=== PATIENT | male | born 1945 | race Asian ===

== ENCOUNTER 2020-05-04 06:01 | Inpatient (IN) | payer OTHER ==
[~2020-05-04] VITALS: Ht 172.7 cm; Wt 70.0 kg
[2020-05-04 07:17] LABS: Basophils # (auto) 0 10 ^3/uL (0-0.2); Basophils % (auto) 0.3 % (0.0-2.0); Eosinophils # (auto) 0 10 ^3/uL (0-0.8); Hematocrit 46.4 % (41.0-53.0); Hemoglobin 16.2 g/dL (13.5-17.5); Lymphocytes # (auto) 0.7 10 ^3/uL (0.4-5.4); Lymphocytes % (auto) 6.6 % (10.0-50.0); Mean Corpuscular Hemoglobin 32.6 pg (28.0-32.0); Mean Corpuscular Hgb Conc. 34.8 g/dL (32.0-36.0); Mean Corpuscular Volume 93.6 fL (80.0-100.0); Monocytes # (auto) 0.6 10 ^3/uL (0-1.3); Monocytes % (auto) 6.1 % (0.0-12.0); Neutrophils # (auto) 8.9 10 ^3/uL (1.6-8.6); Nucleated Red Blood Cells % 0.1 %; Platelet Count (auto) 281 10^3/uL (140-450); Red Blood Cells 4.96 10^6/uL (4.5-5.90); Red Cell Distribution Width 13.1 % (11.8-14.3); White Blood Cell 10.2 10^3/uL (4.4-10.8)
[2020-05-04 07:41] LABS: Albumin 4.6 g/dL (3.4-5.0); BUN/Creatinine Ratio 20.7; Bilirubin, Total 0.6 mg/dL (0.2-1.0); Calcium 9.4 mg/dL (8.5-10.1); Total Protein 8.7 g/dL (6.4-8.2)
[2020-05-04] MEDS ORDERED: METOCLOPRAMIDE HCL 5MG/ml INJ 2ml VIAL IV ONE (08:15)
[2020-05-04] MEDS ORDERED: MORPHINE SULF INJ 2 MG/ML SYRINGE 1ML IV ONE (08:15)
[2020-05-04] MEDS ORDERED: SODIUM CHLORIDE 0.9% 500 ML IVB ONE (08:30)
[2020-05-04] MEDS ORDERED: SODIUM CHLORIDE 0.9% 1,000 ML IV ONE (08:30)
[2020-05-04 09:11] LABS: Partial Thromboplastin Time 24.9 sec (23.0-31.2)
[2020-05-04] MEDS ORDERED: D5W/SOD CHL 0.45%/KCL 40MEQ 1,000 ML IV ONE (10:30)
[2020-05-04] MEDS ORDERED: ONDANSETRON HCL 4 MG/2 ML VIAL IV PRN (11:30)
[2020-05-04] MEDS ORDERED: MORPHINE SULF INJ 2 MG/ML SYRINGE 1ML IV PRN ×2 (11:30)
[2020-05-04] MEDS ORDERED: NITROGLYCERIN 0.4 MG SL TAB SL PRN (11:30)
[2020-05-04 12:05] LABS: Cholesterol 253 mg/dL (< 200)
[2020-05-04 12:08] LABS: HDL Cholesterol 84 mg/dL (40-59); LDL Cholesterol 148 mg/dL (< 100); Triglycerides 109 mg/dL (< 150)
[2020-05-04] MEDS: PANTOPRAZOLE 40 MG/10 ML VIAL INJ IV SCH ×2 (14:38→23:00)
[2020-05-04 16:47] VITALS: BP 134/74
[2020-05-04] MEDS: D5W/SOD CHL 0.45% 1,000 ML IV SCH (19:30)
[2020-05-04 22:00] VITALS: BP 118/78
[2020-05-04 23:43] LABS: Urine Bacteria NONE SEEN /hpf (None Seen); Urine Blood Negative /uL (Negative); Urine Hyaline Cast MOD /lpf (0 - 2); Urine Specific Gravity 1.017 (1.001-1.035); Urine WBC 1 /hpf (0 - 3)
[2020-05-04 23:55] LABS: Protein, Urine 27.8 mg/dL (0.0-11.9)
[2020-05-05] MEDS: D5W/SOD CHL 0.45% 1,000 ML IV SCH ×4 (00:31→20:57)
[2020-05-05 05:00] VITALS: BP 141/75
[2020-05-05 07:54] LABS: Phosphorus 4.1 mg/dL (2.5-4.90)
[2020-05-05 08:33] VITALS: BP 127/75
[2020-05-05] MEDS ORDERED: SODIUM CHLORIDE LOCK 10 ML ONE (09:55)
[2020-05-05] MEDS ORDERED: LIDOCAINE VISCOUS 2% 15ML UD ONE (09:56)
[2020-05-05] MEDS ORDERED: fentaNYL CITRATE 100 MCG/2 ML VL ONE (09:56)
[2020-05-05] MEDS ORDERED: diphenhdrAMINE HCL 50 MG/1 ML VL ONE (09:56)
[2020-05-05] MEDS ORDERED: MIDAZOLAM HCL 5 MG/ML-1ML VIAL ONE (09:56)
[2020-05-05] MEDS: PANTOPRAZOLE 40 MG/10 ML VIAL INJ IV SCH ×2 (10:04→20:57)
[2020-05-05 10:26] LABS: Basophils # (auto) 0 10 ^3/uL (0-0.2); Basophils % (auto) 0.2 % (0.0-2.0); Eosinophils # (auto) 0 10 ^3/uL (0-0.8); Hematocrit 44.1 % (41.0-53.0); Hemoglobin 14.9 g/dL (13.5-17.5); Lymphocytes % (auto) 9.4 % (10.0-50.0); Mean Corpuscular Hemoglobin 32.4 pg (28.0-32.0); Mean Corpuscular Hgb Conc. 33.9 g/dL (32.0-36.0); Mean Corpuscular Volume 95.6 fL (80.0-100.0); Monocytes % (auto) 9.3 % (0.0-12.0); Neutrophils # (auto) 9.1 10 ^3/uL (1.6-8.6); Neutrophils % (auto) 81.1 % (37.0-80.0); Nucleated Red Blood Cells % 0.1 %; Platelet Count (auto) 235 10^3/uL (140-450); Red Blood Cells 4.62 10^6/uL (4.5-5.90); Red Cell Distribution Width 13.3 % (11.8-14.3); White Blood Cell 11.2 10^3/uL (4.4-10.8)
[2020-05-05 12:46] LABS: BUN/Creatinine Ratio 22.6; Calcium 8.3 mg/dL (8.5-10.1)
[2020-05-05 14:49] LABS: Uric Acid 15.2 mg/dL (3.5-7.2)
[2020-05-05] MEDS ORDERED: POTASSIUM CHL 20MEQ/100ML 100 ML IV ONE (16:00)
[2020-05-05] MEDS ORDERED: LEVOTHYROXINE SODIUM 25 MCG TAB PO ONE (16:15)
[2020-05-05 16:31] VITALS: BP 122/70
[2020-05-05] MEDS ORDERED: POTASSIUM CHLORIDE 20 MEQ, LIDOCAINE 1% (LOCAL ANESTH.) 2 ML in SODIUM CHL 0.9% 100 ML IV ONE (16:45)
[2020-05-05 22:00] VITALS: BP 127/65
[2020-05-06] MEDS: D5W/SOD CHL 0.45% 1,000 ML IV SCH ×3 (03:30→19:30)
[2020-05-06 05:00] VITALS: BP 128/68
[2020-05-06] MEDS: LEVOTHYROXINE SODIUM 25 MCG TAB PO SCH (06:26)
[2020-05-06 07:09] LABS: BUN/Creatinine Ratio 27.1; Potassium 3.2 mmol/L (3.5-5.1)
[2020-05-06 09:20] VITALS: BP 122/63
[2020-05-06] MEDS: PANTOPRAZOLE 40 MG/10 ML VIAL INJ IV SCH ×2 (09:30→20:40)
[2020-05-06] MEDS: ENOXAPARIN SOD 30 MG/0.3 ML SYRINGE SC SCH (09:30)
[2020-05-06] MEDS: ALLOPURINOL 100 MG TAB PO SCH (09:30)
[2020-05-06] MEDS ORDERED: GASTROGRAFIN 120 ML SOL ONE (09:46)
[2020-05-06 17:00] VITALS: BP 134/76
[2020-05-06 22:00] VITALS: BP 121/70
[2020-05-07] MEDS: D5W/SOD CHL 0.45% 1,000 ML IV SCH (03:30)
[2020-05-07 05:00] VITALS: BP 126/75
[2020-05-07] MEDS: LEVOTHYROXINE SODIUM 25 MCG TAB PO SCH (06:33)
[2020-05-07 06:48] LABS: Albumin 3.4 g/dL (3.4-5.0); Calcium 8.3 mg/dL (8.5-10.1)
[2020-05-07 06:54] LABS: BUN/Creatinine Ratio 25.4; Bilirubin, Total 0.8 mg/dL (0.2-1.0); Total Protein 6.5 g/dL (6.4-8.2)
[2020-05-07 08:56] VITALS: BP 126/69
[2020-05-07] MEDS: ENOXAPARIN SOD 30 MG/0.3 ML SYRINGE SC SCH (09:05)
[2020-05-07] MEDS: ALLOPURINOL 100 MG TAB PO SCH (09:22)
[2020-05-07] MEDS: PANTOPRAZOLE 40 MG/10 ML VIAL INJ IV SCH (09:25)
[2020-05-07] MEDS ORDERED: POTASSIUM CHL 20 Meq TABLET PO ONE (11:15)
[2020-05-07 12:43] VITALS: BP 134/75
[2020-05-07 14:48] VITALS: BP 134/75
== END 2020-05-07 15:25 | disposition home or self-care (01) | DRG 380 ==
LOC: EDBD 06:01 → ER 06:01 → TELE-EAST 06:02 → TELE-WESTW 12:32 → ER 12:42 → TELE-WESTW 19:32
PROVIDERS: ADMIT Nurse Practitioner Acute Care; ATTEND Family Medicine
PROC: 0DB68ZX Excision of Stomach, Via Natural or Artificial Opening Endoscopic, Diagnostic (ICD-10-PCS; 2020-05-05)
PROC: 0DB58ZX Excision of Esophagus, Via Natural or Artificial Opening Endoscopic, Diagnostic (ICD-10-PCS; principal; 2020-05-05 12:05)
DX: K31.1 Adult hypertrophic pyloric stenosis (principal); K22.11 Ulcer of esophagus with bleeding; N17.0 Acute kidney failure with tubular necrosis; K29.71 Gastritis, unspecified, with bleeding; E87.3 Alkalosis; E87.6 Hypokalemia; E83.41 Hypermagnesemia; E03.9 Hypothyroidism, unspecified; N40.0 Benign prostatic hyperplasia without lower urinary tract symptoms; I12.9 Hypertensive chronic kidney disease with stage 1 through stage 4 chronic kidney disease, or unspecified chronic kidney disease; E11.22 Type 2 diabetes mellitus with diabetic chronic kidney disease; E79.0 Hyperuricemia without signs of inflammatory arthritis and tophaceous disease; K21.9 Gastro-esophageal reflux disease without esophagitis; F41.9 Anxiety disorder, unspecified; K44.9 Diaphragmatic hernia without obstruction or gangrene; K31.9 Disease of stomach and duodenum, unspecified; Z87.891 Personal history of nicotine dependence; Z20.822 Contact with and (suspected) exposure to COVID-19; N18.32 Chronic kidney disease, stage 3b
CPT/HCPCS: 36415; 43239; 71045; 71046; 74176; 74181; 74250; 80048; 80053; 80061; 81001; 82150; 82570; 83690; 83735; 84100; 84156; 84300; 84443; 84550; 85025; 85610; 85730; 86301; 86677; 87426; 93005; 96361; 96365; 96375; C9113; G0378; J2001; J2250; J3480

== ENCOUNTER 2022-10-15 12:17 | Inpatient (IN) | payer MEDICARE, OTHER ==
[~2022-10-15] VITALS: Ht 182.9 cm; Wt 68.8 kg
[2022-10-15 12:45] VITALS: PULSE 55; RESP 17; O2SAT 94
[2022-10-15] MEDS ORDERED: PANTOPRAZOLE 40 MG/10 ML VIAL INJ IV ONE (13:15)
[2022-10-15] MEDS ORDERED: SODIUM CHLORIDE 0.9% 500 ML IVB ONE (13:15)
[2022-10-15 13:36] LABS: Basophils # (auto) 0.1 10 ^3/uL (0-0.2); Basophils % (auto) 0.7 % (0.0-2.0); Eosinophils # (auto) 0 10 ^3/uL (0-0.8); Hemoglobin 15.6 g/dL (13.5-17.5); Lymphocytes # (auto) 0.3 10 ^3/uL (0.4-5.4); Lymphocytes % (auto) 2.8 % (10.0-50.0); Mean Corpuscular Hemoglobin 32.3 pg (28.0-32.0); Mean Corpuscular Hgb Conc. 33.9 g/dL (32.0-36.0); Mean Corpuscular Volume 95.5 fL (80.0-100.0); Monocytes # (auto) 1.7 10 ^3/uL (0-1.3); Monocytes % (auto) 17.7 % (0.0-12.0); Neutrophils # (auto) 7.7 10 ^3/uL (1.6-8.6); Neutrophils % (auto) 78.8 % (37.0-80.0); Red Blood Cells 4.81 10^6/uL (4.5-5.90); Red Cell Distribution Width 13.3 % (11.8-14.3); White Blood Cell 9.8 10^3/uL (4.4-10.8)
[2022-10-15 13:48] LABS: Alanine Aminotransferase 13 U/L (7-40); Albumin 4.6 g/dL (3.2-4.8); Alkaline Phosphatase 72 U/L (46-116); Anion Gap 9.2 (5-15); Aspartate Aminotransferase < 8 U/L (13-40); BUN/Creatinine Ratio 17.1 (10.0-20.0); Blood Urea Nitrogen 30 mg/dL (9-23); Calcium 9.6 mg/dL (8.5-10.1); Carbon Dioxide 36.8 mmol/L (20-30); Chloride 99 mmol/L (98-107); Glucose 137 mg/dL (74-106); Lipase 38 U/L (12-53); Potassium 3.2 mmol/L (3.5-5.1); Sodium 145 mmol/L (136-145)
[2022-10-15 13:49] LABS: Bilirubin, Total 1.2 mg/dL (0.2-1.0); Total Protein 7.2 g/dL (5.7-8.2)
[2022-10-15] MEDS ORDERED: IOHEXOL 300 MG/ML 100ML BOTTLE IJ ONE (14:10)
[2022-10-15] MEDS ORDERED: POTASSIUM CHL 20MEQ/100ML 100 ML IV ONE (14:15)
[2022-10-15] MEDS ORDERED: ASPI-325 PO (16:07)
[2022-10-15] MEDS ORDERED: LEV25T PO (16:07)
[2022-10-15] MEDS ORDERED: CYCL0.058 EACHEYE (16:07)
[2022-10-15] MEDS ORDERED: AMLO1TAB21 PO (16:07)
[2022-10-15] MEDS ORDERED: LATA0.008 (16:07)
[2022-10-15] MEDS ORDERED: TAMS0.4C36 PO (16:07)
[2022-10-15] MEDS ORDERED: CHOL1TAB42 PO (16:07)
[2022-10-15] MEDS ORDERED: TIMO0.5S32 (16:07)
[2022-10-15] MEDS ORDERED: PANT40T PO (16:07)
[2022-10-15] MEDS ORDERED: ONDANSETRON HCL 4 MG/2 ML VIAL IV PRN (16:15)
[2022-10-15] MEDS ORDERED: ACETAMINOPHEN 325 MG TAB PO PRN (16:15)
[2022-10-15] MEDS: SODIUM CHLORIDE 0.9% 1,000 ML IV SCH (19:28)
[2022-10-15 20:00] VITALS: PULSE 61; RESP 16; O2SAT 100
[2022-10-15 20:42] LABS: Urine Bacteria NONE SEEN /hpf (None Seen); Urine Blood Negative /uL (Negative); Urine Clarity Clear (Clear); Urine Color Yellow (Yellow); Urine Protein, UAD 1+ (Negative); Urine Urobilinogen Normal (Negative); Urine WBC <1 /hpf (0 - 3); Urine pH 8.5 (5.0-8.0)
[2022-10-15 20:46] LABS: Urine Specific Gravity > 1.050 (1.001-1.035)
[2022-10-16] MEDS: SODIUM CHLORIDE 0.9% 1,000 ML IV SCH ×2 (02:15→10:45)
[2022-10-16 05:30] LABS: Basophils # (auto) 0 10 ^3/uL (0-0.2); Basophils % (auto) 0.4 % (0.0-2.0); Eosinophils # (auto) 0 10 ^3/uL (0-0.8); Eosinophils % (auto) 0.5 % (0.0-7.0); Hematocrit 40.4 % (41.0-53.0); Hemoglobin 13.7 g/dL (13.5-17.5); Lymphocytes % (auto) 15.4 % (10.0-50.0); Mean Corpuscular Hemoglobin 32.4 pg (28.0-32.0); Mean Corpuscular Hgb Conc. 33.9 g/dL (32.0-36.0); Mean Corpuscular Volume 95.7 fL (80.0-100.0); Monocytes # (auto) 0.5 10 ^3/uL (0-1.3); Monocytes % (auto) 7.7 % (0.0-12.0); Red Blood Cells 4.23 10^6/uL (4.5-5.90); Red Cell Distribution Width 13.3 % (11.8-14.3); White Blood Cell 6.5 10^3/uL (4.4-10.8)
[2022-10-16 05:47] LABS: Alanine Aminotransferase 11 U/L (7-40); Albumin 3.8 g/dL (3.2-4.8); Alkaline Phosphatase 60 U/L (46-116); Anion Gap 6.8 (5-15); Aspartate Aminotransferase < 8 U/L (13-40); BUN/Creatinine Ratio 15.9 (10.0-20.0); Bilirubin, Total 1.3 mg/dL (0.2-1.0); Blood Urea Nitrogen 24 mg/dL (9-23); Calcium 8.5 mg/dL (8.7-10.4); Carbon Dioxide 31.2 mmol/L (20-30); Chloride 106 mmol/L (98-107); Glucose 103 mg/dL (74-106); Potassium 3.2 mmol/L (3.5-5.1); Sodium 144 mmol/L (136-145); Total Protein 5.9 g/dL (5.7-8.2)
[2022-10-16 08:48] VITALS: PULSE 78; RESP 18; O2SAT 2
[2022-10-16] MEDS: PANTOPRAZOLE 40 MG/10 ML VIAL INJ IV SCH (10:10)
[2022-10-16] MEDS: TAMSULOSIN HYDROCHLORIDE 0.4 MG CAP PO SCH (10:11)
[2022-10-16] MEDS: amLODIPine BESYLATE 5 MG TAB PO SCH (10:11)
[2022-10-16] MEDS: CHOLECALCIFEROL (VITD3) 2,000 UNIT CAP/TAB PO SCH (10:12)
[2022-10-16] MEDS: LEVOTHYROXINE SODIUM 25 MCG TAB PO SCH (10:12)
[2022-10-16 11:44] VITALS: BP 138/72; PULSE 77; RESP 16; TEMP 98.2; O2SAT 94
[2022-10-16] MEDS ORDERED: SUCRALFATE 1 GM/10 ML ORAL SUSP GT ONE (14:00)
[2022-10-16] MEDS ORDERED: MORPHINE SULFATE INJ 2 MG/ml SYRG IV PRN (14:15)
[2022-10-16] MEDS ORDERED: SUCRALFATE 1 GM/10 ML ORAL SUSP PO ONE (14:15)
[2022-10-16] MEDS ORDERED: SUCRALFATE 1 GM/10 ML ORAL SUSP GT SCH (17:00)
[2022-10-16] MEDS: SUCRALFATE 1 GM/10 ML ORAL SUSP PO SCH (17:58)
[2022-10-16 20:00] VITALS: PULSE 69; RESP 18; O2SAT 100
[2022-10-16 22:00] VITALS: BP 118/64; PULSE 69; RESP 17; TEMP 99; O2SAT 96
[2022-10-17 05:00] VITALS: BP 116/58; PULSE 56; RESP 17; TEMP 97.5; O2SAT 97
[2022-10-17 06:34] LABS: Basophils # (auto) 0 10 ^3/uL (0-0.2); Basophils % (auto) 0.3 % (0.0-2.0); Eosinophils # (auto) 0.1 10 ^3/uL (0-0.8); Eosinophils % (auto) 1.5 % (0.0-7.0); Hematocrit 36.5 % (41.0-53.0); Hemoglobin 12.5 g/dL (13.5-17.5); Mean Corpuscular Hemoglobin 32.5 pg (28.0-32.0); Mean Corpuscular Hgb Conc. 34.4 g/dL (32.0-36.0); Mean Corpuscular Volume 94.6 fL (80.0-100.0); Monocytes # (auto) 0.6 10 ^3/uL (0-1.3); Monocytes % (auto) 10.9 % (0.0-12.0); Neutrophils # (auto) 3.5 10 ^3/uL (1.6-8.6); Neutrophils % (auto) 68.3 % (37.0-80.0); Nucleated Red Blood Cells % 0.1 %; Red Blood Cells 3.85 10^6/uL (4.5-5.90); White Blood Cell 5.1 10^3/uL (4.4-10.8)
[2022-10-17] MEDS: SUCRALFATE 1 GM/10 ML ORAL SUSP PO SCH ×2 (06:57→17:31)
[2022-10-17] MEDS: SODIUM CHLORIDE 0.9% 1,000 ML IV SCH ×2 (06:57→17:30)
[2022-10-17 07:59] LABS: Alanine Aminotransferase 10 U/L (7-40); Albumin 3.3 g/dL (3.2-4.8); Alkaline Phosphatase 49 U/L (46-116); Anion Gap 6.9 (5-15); Aspartate Aminotransferase < 8 U/L (13-40); BUN/Creatinine Ratio 17.8 (10.0-20.0); Blood Urea Nitrogen 24 mg/dL (9-23); Calcium 8.1 mg/dL (8.5-10.1); Carbon Dioxide 29.1 mmol/L (20-30); Chloride 107 mmol/L (98-107); Glucose 111 mg/dL (74-106); Potassium 3.1 mmol/L (3.5-5.1); Sodium 143 mmol/L (136-145); Total Protein 5.2 g/dL (5.7-8.2)
[2022-10-17 09:22] VITALS: BP 112/65; PULSE 62; RESP 17; TEMP 97.8; O2SAT 98
[2022-10-17] MEDS: TAMSULOSIN HYDROCHLORIDE 0.4 MG CAP PO SCH (09:44)
[2022-10-17] MEDS: LEVOTHYROXINE SODIUM 25 MCG TAB PO SCH (09:44)
[2022-10-17] MEDS: CHOLECALCIFEROL (VITD3) 2,000 UNIT CAP/TAB PO SCH (09:44)
[2022-10-17] MEDS: PANTOPRAZOLE 40 MG/10 ML VIAL INJ IV SCH (09:45)
[2022-10-17] MEDS: amLODIPine BESYLATE 5 MG TAB PO SCH (09:45)
[2022-10-17 12:59] VITALS: BP 106/58; PULSE 56; RESP 18; TEMP 97.3; O2SAT 97
[2022-10-17 20:00] VITALS: BP 112/65; TEMP 36.3
[2022-10-17 22:00] VITALS: BP_SYST 103; BP_SYST 139; BP_DIAS 37; BP_DIAS 85; PULSE 67; PULSE 89; RESP 18; RESP 19; TEMP 97.7; TEMP 98.2; O2SAT 96; O2SAT 99
[2022-10-18] MEDS: SODIUM CHLORIDE 0.9% 1,000 ML IV SCH ×2 (02:45→12:45)
[2022-10-18 05:00] VITALS: BP 109/36; PULSE 57; RESP 17; TEMP 98.4; O2SAT 98
[2022-10-18] MEDS: SUCRALFATE 1 GM/10 ML ORAL SUSP PO SCH ×2 (06:20→16:18)
[2022-10-18 09:35] VITALS: BP 112/60; PULSE 58; RESP 17; TEMP 97.5; O2SAT 98
[2022-10-18] MEDS: CHOLECALCIFEROL (VITD3) 2,000 UNIT CAP/TAB PO SCH (10:29)
[2022-10-18] MEDS: amLODIPine BESYLATE 5 MG TAB PO SCH (10:31)
[2022-10-18] MEDS: PANTOPRAZOLE 40 MG/10 ML VIAL INJ IV SCH (10:32)
[2022-10-18] MEDS: TAMSULOSIN HYDROCHLORIDE 0.4 MG CAP PO SCH (10:32)
[2022-10-18] MEDS: LEVOTHYROXINE SODIUM 25 MCG TAB PO SCH (10:32)
[2022-10-18] MEDS ORDERED: POTASSIUM CHL 20MEQ/100ML 100 ML IV ONE (17:00)
[2022-10-18 22:00] VITALS: BP 124/59; PULSE 67; RESP 17; TEMP 98.4; O2SAT 97
[2022-10-19] VITALS (9 sets, daily range): BP systolic 106–132; BP diastolic 56–85; PULSE 60–82; RESP 17–18; TEMP 97.7–98.5; O2SAT 94–99
[2022-10-19] MEDS: SODIUM CHLORIDE 0.9% 1,000 ML IV SCH ×3 (00:23→18:45)
[2022-10-19] MEDS: SUCRALFATE 1 GM/10 ML ORAL SUSP PO SCH (05:42)
[2022-10-19 10:47] LABS: Basophils # (auto) 0 10 ^3/uL (0-0.2); Basophils % (auto) 0.4 % (0.0-2.0); Eosinophils # (auto) 0.1 10 ^3/uL (0-0.8); Eosinophils % (auto) 3.2 % (0.0-7.0); Hematocrit 36.4 % (41.0-53.0); Hemoglobin 12.5 g/dL (13.5-17.5); Lymphocytes # (auto) 0.9 10 ^3/uL (0.4-5.4); Lymphocytes % (auto) 21.3 % (10.0-50.0); Mean Corpuscular Hemoglobin 32.2 pg (28.0-32.0); Mean Corpuscular Hgb Conc. 34.3 g/dL (32.0-36.0); Monocytes # (auto) 0.3 10 ^3/uL (0-1.3); Monocytes % (auto) 7.3 % (0.0-12.0); Neutrophils # (auto) 2.8 10 ^3/uL (1.6-8.6); Neutrophils % (auto) 67.8 % (37.0-80.0); Red Blood Cells 3.87 10^6/uL (4.5-5.90); White Blood Cell 4.2 10^3/uL (4.4-10.8)
[2022-10-19 11:00] LABS: Alanine Aminotransferase 12 U/L (7-40); Albumin 3.2 g/dL (3.2-4.8); Alkaline Phosphatase 48 U/L (46-116); Anion Gap 5.9 (5-15); Aspartate Aminotransferase 8 U/L (13-40); BUN/Creatinine Ratio 6.2 (10.0-20.0); Bilirubin, Total 0.7 mg/dL (0.2-1.0); Blood Urea Nitrogen 7 mg/dL (9-23); Carbon Dioxide 25.1 mmol/L (20-30); Chloride 112 mmol/L (98-107); Glucose 111 mg/dL (74-106); Potassium 3.9 mmol/L (3.5-5.1); Sodium 143 mmol/L (136-145)
[2022-10-19 11:04] LABS: INR 1.08 (0.9-1.15); Partial Thromboplastin Time 28.5 SEC (24.5-34.5); Prothrombin Time 11.3 sec (9.3-11.8)
[2022-10-19] MEDS: LEVOTHYROXINE SODIUM 25 MCG TAB PO SCH (11:32)
[2022-10-19] MEDS: CHOLECALCIFEROL (VITD3) 2,000 UNIT CAP/TAB PO SCH (11:32)
[2022-10-19] MEDS: TAMSULOSIN HYDROCHLORIDE 0.4 MG CAP PO SCH (11:33)
[2022-10-19] MEDS: PANTOPRAZOLE 40 MG/10 ML VIAL INJ IV SCH (11:33)
[2022-10-19] MEDS: amLODIPine BESYLATE 5 MG TAB PO SCH (11:33)
[2022-10-19] MEDS ORDERED: fentaNYL CITRATE 100 MCG/2 ML VL ONE (14:03)
[2022-10-19] MEDS ORDERED: MIDAZOLAM HCL 2MG/2ML 2ml VIAL (1mg/ml) ONE (14:04)
[2022-10-19] MEDS ORDERED: DexAMETHasone SOD PHOS 10MG/1ML VIAL INJ ONE (15:06)
[2022-10-19] MEDS ORDERED: PROPOFOL 10 MG/ML 20 ML IV ONE (15:06)
[2022-10-19] MEDS ORDERED: PANT40TA2 PO (16:45)
[2022-10-19] MEDS ORDERED: SUCR1TAB22 OR (16:45)
[2022-10-19] MEDS ORDERED: SUCRALFATE 1 GM/10 ML ORAL SUSP PO SCH (17:00)
== END 2022-10-19 19:00 | disposition home or self-care (01) | DRG 380 ==
LOC: ER 12:17 → EDBD 12:17 → OVERFLOW 16:06 → CENTRAL 10-16 13:13
PROVIDERS: ADMIT Internal Medicine Pulmonary Disease; ATTEND Internal Medicine Pulmonary Disease
PROC: 0DB68ZX Excision of Stomach, Via Natural or Artificial Opening Endoscopic, Diagnostic (ICD-10-PCS; 2022-10-19)
PROC: 0DB58ZX Excision of Esophagus, Via Natural or Artificial Opening Endoscopic, Diagnostic (ICD-10-PCS; principal; 2022-10-19 14:01)
DX: K22.11 Ulcer of esophagus with bleeding (principal); N17.0 Acute kidney failure with tubular necrosis; K31.1 Adult hypertrophic pyloric stenosis; K29.71 Gastritis, unspecified, with bleeding; E87.6 Hypokalemia; E03.9 Hypothyroidism, unspecified; F41.9 Anxiety disorder, unspecified; K21.00 Gastro-esophageal reflux disease with esophagitis, without bleeding; E86.9 Volume depletion, unspecified; I12.9 Hypertensive chronic kidney disease with stage 1 through stage 4 chronic kidney disease, or unspecified chronic kidney disease; E11.22 Type 2 diabetes mellitus with diabetic chronic kidney disease; N40.0 Benign prostatic hyperplasia without lower urinary tract symptoms; K44.9 Diaphragmatic hernia without obstruction or gangrene; N18.31 Chronic kidney disease, stage 3a; Z88.8 Allergy status to other drugs, medicaments and biological substances; Z80.9 Family history of malignant neoplasm, unspecified
CPT/HCPCS: 36415; 71045; 71250; 74177; 80053; 81001; 82306; 82607; 83690; 83735; 83930; 84443; 84484; 84550; 85025; 85610; 85730; 86850; 86900; 86901; 93005; 93306; 96374; C9113; G0378; J1100; J2250; J2405; J2704; J3480